=== PATIENT | male | born 1945 | race Caucasian/White ===

== ENCOUNTER 2024-02-19 21:41 | Observation (INO) | payer MEDICARE, SELFPAY ==
[2024-02-19] VITALS (11 sets, daily range): BP systolic 93–136; BP diastolic 60–79; BMI 25.8
[2024-02-19 14:06] LABS: % Basophils 0.7 % (0-2); % Eosinophils 1.5 % (0-6); % Immature Granulocytes 0.2 % (0-0.5); % Lymphocytes 32.5 % (20.5-51.1); % Monocytes 7.2 % (1.7-9.3); % Neutrophils 57.9 % (42.2-75.2); Absolute Eosinophils 0.1 10^3/uL (0-0.7); Absolute Monocytes 0.4 10^3/uL (0.1-0.6); Absolute Neutrophils 3.5 10^3/uL (1.4-6.5); Hematocrit 41.9 % (39.0-52.0); Hemoglobin 13.9 g/dL (13.0-18.0); Mean Corp Hgb Conc. 33.2 g/dL (33.0-37.0); Mean Corpuscular Hgb 30.7 pg (27.0-31.0); Mean Corpuscular Volume 92.5 fL (80.0-94.0); Mean Platelet Volume 10.2 fL (7.4-10.4); Nucleated Red Blood Cells % 0 % (-); Platelet Count 141 10^3/uL (130-400); Red Blood Cell Count 4.53 10^6/uL (4.70-6.10)
[2024-02-19 14:23] LABS: ALT (SGPT) < 10 U/L (0-50); AST (SGOT) 20 U/L (17-59); Albumin 4.2 g/dl (3.5-5.0); Alkaline Phosphatase 62 U/L (38-126); Blood Urea Nitrogen 33 mg/dl (9-20); Calcium 9.4 mg/dl (8.4-10.2); Carbon Dioxide 28 mmol/L (22-30); Chloride 104 mmol/L (98-107); Glucose 110 mg/dl (70-99); Potassium 4.5 mmol/L (3.5-5.1); Sodium 140 mmol/L (135-145); Total Bilirubin 0.7 mg/dl (0.2-1.3); Total Protein 7.2 g/dl (6.3-8.2); eGFR > 60.00
--- NOTE | 2024-02-19 17:58 | EDRN ---
Trina NGUYỄN currently at the pts bedside
--- NOTE | 2024-02-19 18:01 | ED.GENMED ---
History of Present Illness
General
Chief Complaint: Numbness
Source: patient and family
Exam Limitations: none
Time Seen by Provider: 02/19/24 17:37
History of Present Illness
History of Present Illness:
78yoM with a history of atrial fibrillation, hypertension, hyperlipidemia, pacemaker/defibrillator placement, and prior mini stroke presenting with his son for evaluation of right arm weakness. Patient was sitting in his chair yesterday in the
living room around 10 PM. He started to feel a weird sensation in his right arm and states it felt like he could not control the movement in his right arm. He tried to use the remote but was unable to figure out how to push the buttons correctly.
He denies having symptoms in the lower extremities at this time. He stood up from the chair and fell to the ground. He denies any head strike or loss of consciousness. He then had a second fall a few minutes later in the kitchen. Patient denies
any symptoms today and states his right arm symptoms have completely resolved. He denies any headache, visual changes, dizziness, chest pain, palpitations, shortness of breath.
Phy Exam
General Physical Exam
General Presentation: well appearing and no apparent distress
General age: appears stated age
General Skin: warm and dry
General Habitus: normal
General Mental: alert
ENT Exam
ENT Exam: normocephalic
Cardiovascular Exam
Cardiovascular Exam: regular rate/rhythm and normal peripheral pulses (2+ radial pulses bilaterally)
Pulmonary Exam
Pulmonary Exam: lungs clear, no respiratory distress, no rales, no crackles and no rhonchi
Neurological Exam
Neurological Exam: alert, CN II-XII intact, no motor deficits, no sensory deficits, speech normal and other (CN 2-12 grossly intact. PERRL. EOMs intact. Negative drift x4. 5/5 strength and gross sensation intact in all extremities. Normal finger to
nose and heel to sprague bilaterally. )
NIH Stroke Score
Level of Consciousness: 0 - Alert
LOC questions: 0-Answers both correctly
LOC Commands: 0-Performs both correctly
Best Gaze: 0-Normal
Visual [place]: 0=Normal, no visual loss
Facial palsy: 0=Normal, symmetrical
Motor - Right Arm: 0=No drift 10 seconds
Motor - Left Arm: 0=No drift 10 seconds
Motor - Right Le-No drift 5 seconds
Motor - Left Le-No drift 5 seconds
Limb Ataxia: 0-Absent
Sensation: 0-Normal
Best Language: 0-No aphasia
Dysarthria: 0-Normal
Extinction and Inattention: 0-No abnormality
Total Score:: 0
[place] Coma Scale
Eye Opening: Spontaneous
Verbal Response: Oriented
Motor Response: Obeys Commands
GCS Total Score: 15
Skin Exam
Skin Exam: normal color and warm/dry
Psychiatric Exam
Psychiatric Exam: normal mood/affect
Course
Orders/Labs/Results
Orders:
Orders
02/19/24 13:45
EKG [Electrocardiogram (*1)] Urgent
Reason for Study: Vertigo / Dizzy
EKG- Treatment ONCE
02/19/24 14:00
Complete Blood Count/With Diff Urgent
Comprehensive Metabolic Panel Urgent
02/19/24 17:39
Interrogate Pacemaker- Treatment ONCE
02/19/24 18:00
CT Head W/o Iv Contrast Urgent
Comment:
Reason For Exam: transient R arm numbness
02/19/24 18:19
Troponin I Urgent
02/19/24 21:27
Admit/Transfer Patient As Directed
Co-Sign Provider:
Level of Care: Observation services
Assign to:: Telemetry
Physician / Group: Riley Sifuentes
Diagnosis: CVA/TIA symptoms
Reason for Telemetry: CVA/TIA
Date to Stop Telemetry: 02/22/24
Time to Stop Telemetry: 11:00
02/19/24 21:28
Code Status As Directed
Resuscitation Status: Do not resuscitate
Reached after discussion with pt or family/Healthcare POA: Yes
Decision communicated with: patient and son
DNR Bracelet Application ONCE
02/19/24 22:00
Flush (0.9% Sodium Chloride) [Flush (Nss)] See Dose Instructions IV PER PROTOCOL
02/19/24 22:23
Acetaminophen [Tylenol] 650 mg PO Q4HPRN PRN
02/19/24 22:23
Urinalysis Routine
MR Brain Without Contrast Routine
Comment:
Reason For Exam: stroke/TIA
Recent pill cam endoscopy?: No
Activity As Directed
Activity Level: Out of Bed-Early Mobility
NIH Stroke Scale As Directed
Directions: Per protocol
Comment: every shift and with any change in condition or mental status
Neurological Checks As Directed
Frequency: q4h
Additional Instructions:: q4h x 24h upon admission to the floor, then qshift & with any change in condition
and mental status
Patient Education As Directed
Type: Stroke education packet
Comment: provide to patient and family
Pneumatic Compression Sleeves As Directed
Type: Knee high
Vital Signs As Directed
Frequency: Per unit guidelines
Ot Eval And Treat Routine
Pt Eval And Treat Routine
Activity Level: Out of Bed-Early Mobility
Speech Therapy Eval & Treat Routine
DX Deep Vein Thrombosis Video Routine
02/20/24 06:00
Type+Screen IN AM
Basic Metabolic Panel IN AM
Cardiovascular Evaluation IN AM
Complete Blood Count/With Diff IN AM
Erythrocyte Sed Rate IN AM
Glycohemoglobin (HgbA1c) IN AM
PTT IN AM
Prothrombin Time IN AM
02/22/24 11:00
DC Protocol for Telemetry ONCE
Abnormal Lab Results
02/19/24
14:00
RBC 4.53 L 10^6/uL
(4.70-6.10)
BUN 33 H mg/dl
(9-20)
Glucose 110 H mg/dl
(70-99)
02/19/24 14:00
02/19/24 14:00
Vital Signs
Initial and Last Documented VS:
Initial Vital Signs
Temp Pulse Resp BP Pulse Ox
98.1 F 62 18 133/68 98
02/19/24 13:46 02/19/24 13:46 02/19/24 13:46 02/19/24 13:46 02/19/24 13:46
Last Documented Vital Signs
Temp Pulse Resp BP Pulse Ox
97.5 F 73 19 129/72 96
02/19/24 17:37 02/19/24 22:15 02/19/24 22:15 02/19/24 22:00 02/19/24 20:00
MDM/Problems Addressed
Differential Diagnosis Includes:
78yoM here after an episode of R arm weakness yesterday. States he didn't have any control of the RUE. Had 2 falls yesterday. Symptoms now resolved. Hx of prior TIAs. He is afebrile and hemodynamically stable. He is well appearing in no distress. No
pronator drift noted on exam. NIHSS 0. Differential diagnosis includes but is not limited to: TIA, CVA, ACS
Initial ED plan: Basic lab work and EKG obtained in triage. Labs overall unremarkable. EKG shows ventricular paced rhythm. Will interrogate pacemaker, check troponin, and obtain CT head.
*EKG
Interpreted by ED Provider?: Yes
EKG Intrepretation Date: 02/19/24
Heart Rate: 67
Rate: normal
Rhythm: ventricular paced
Ischemia: no ischemia
*Critical Care Note
Total Time (30-74mins, 75-104mins- exclusive of procedures): Not Applicable
Update Note
Update Note:
Troponin within normal limits. CT head is negative for acute infarct. Old infarct seen on imaging. There is also an arachnoid cyst noted. Patient is high risk given age and comorbidities. Will admit for neurology evaluation.
ED Attending Note
-
Portions of this chart may have been created with voice recognition software.� Occasional wrong word or��sound alike� substitutions may have occurred due to the inherent limitations of voice recognition software.
Discharge Plan
Departure
Patient Disposition: Admit
Date of Disposition: 02/19/24
Time of Disposition: 20:35
Presentation/result/management discussed w/ accepting MD/DO: Hospitalist
Discharge Problem:
Weakness of right arm
Interventions
Interventions:
*Risk Screen - Suicide Last Done: 02/19/24 13:46
*General Assessment Last Done: 02/19/24 13:46
*Neglect/Abuse Screening Last Done: 02/19/24 13:46
ED- Fall Risk Assessment Last Done: 02/19/24 17:37
*ED COVID-19 Vaccine History Last Done: 02/19/24 13:46
*Nursing Disposition Last Done: 02/19/24 22:20
ED- Neurological Assessment Last Done: 02/19/24 17:37
--- NOTE | 2024-02-19 18:26 | EDRN ---
the pt ia AV paced, pacemaker interrogated per Trina Martir NGUYỄN's orders, PIV placed and troponin drawn and sent
[2024-02-19 18:48] LABS: Troponin I 0.012 ng/ml
--- NOTE | 2024-02-19 20:40 | HPS.HSE ---
Family Physician
-
Family Physician: Jeffry Teague Jr.
Chief Complaint
-
confusion
History of Present Illness
Patient is a 78-year-old male with past medical history significant for atrial fibrillation, hypertension, hyperlipidemia, TIA and BPH who presented to [facility] ED for evaluation for inability to use right arm for short period of time. Patient
states yesterday evening he had a period of time where he was unable to work TV remote like normal, he recalls looking at it and unable to know how to turn TV off and unable to get right hand to do anything. Following episode he stood up and fell,
denies feeling any weakness, just stated, 'I must have lost my balance.' He was able to get himself up post fall and walked to kitchen where he had a second fall after opening refrigerator door. Believes he lost balance again when he let go of door
handle. Again he was able to get himself up and went to bed. Decided to come for evaluation after explaining to son the events from night previous. Denies any numbness, vision changes, fever, chills, chest pain, palpitations, nausea, vomiting,
constipation, diarrhea or urinary symptoms.
Medical History
Past Medical History
Past Medical History: Reports Other
Additional Past Medical History:
atrial fibrillation
hypertension
hyperlipidemia
TIA
BPH
Past Surgical History: Reports Other
Additional Past Surgical History:
mitral valve repair (2004)
ICD
cataract surgery
tooth extraction
Social History
Tobacco: Former Smoker (quit in 1984)
Alcohol: Occasional (a few drinks a month)
Drug: None
Living: Alone
Employment: Retired
Family History
Family History: Not pertinent
Allergies / Home Medications
Allergies reflects when Allergies were last updated in [employer].
Home Medications with original date entered in [employer]
Allergy/Medication List:
Allergies
Allergy/AdvReac Type Severity Reaction Status Date / Time
No Known Allergies Allergy Unverified 02/19/24 13:53
Home Medications
ascorbic acid (vitamin C) 1,000 mg tablet,extended release (Vitamin C ER) 1,000 mg PO DAILY 02/19/24
aspirin 81 mg tablet,delayed release 162 mg PO QPM 02/19/24
cyanocobalamin (vitamin B-12) 1,000 mcg tablet (Vitamin B-12) 1,000 mcg PO BID 02/19/24
donepezil 10 mg tablet 10 mg PO HS 02/19/24
folic acid 1 mg tablet 1 mg PO DAILY 02/19/24
methotrexate sodium 2.5 mg tablet 2.5 mg PO QWEEK 02/19/24
sacubitril 24 mg-valsartan 26 mg tablet (Entresto) 1 tab PO BID 02/19/24
simvastatin 40 mg tablet 40 mg PO QPM 02/19/24
sotalol 120 mg tablet 120 mg PO BID 02/19/24
spironolactone 25 mg tablet 12.5 mg PO DAILY 02/19/24
tamsulosin 0.4 mg capsule 0.4 mg PO DAILY 02/19/24
Review of Systems
-
History Source: Patient
Constitutional: Reports No Symptoms
EENT: Reports No Symptoms
Respiratory: Reports No Symptoms
Cardiac: Reports No Symptoms
Abdomen/GI: Reports No Symptoms
: Reports No Symptoms
Musculoskeletal: Reports No Symptoms
Skin: Reports No Symptoms
Neurological: Reports Weakness and Other (inability to control right arm and hand)
Endocrine: Reports No Symptoms
Hematologic/Lymphatic: Reports No Symptoms
Psych: Reports No Symptoms
Physical Exam
Vital Signs
Vital Signs
Temp Pulse Resp BP Pulse Ox
97.5 F 61 15 117/74 98
02/19/24 17:37 02/19/24 19:45 02/19/24 19:45 02/19/24 19:28 02/19/24 19:46
Physical Exam
General: Well Developed, Well Nourished, No Apparent Distress, Comfortable and Conversant
HEENT: NormoCephalic, Moist mucous membranes, Atraumatic, PERRLA, [place] Conjunctivae, Nose Appears Normal and Ears Appear Normal
Respiratory: Clear and Non Labored Respirations
Cardiac: S1/S2 and Regular Rhythm; No Murmur, Rub or Gallop
Breast: Deferred by me
GI: Soft, Non Tender, Non Distended and Normal Bowel Sounds; No Organomegaly
Rectal: Deferred by Provider
Genito-urinary: Deferred by me
Musculoskeletal: No Clubbing, No Cyanosis and No Edema
Skin: Warm and IV/Catheter Site; No Rash
Neuro: Awake, Alert, AO x 3, No Motor Deficits, Nonfocal/grossly intact, Cranial Nerves Intact and No Sensory Deficits
Hematologic/Lymphatic: No Lymphadenopathy
Psych: Calm and Intact Judgment/Insight
Laboratory Results
-
02/19/24 14:00
02/19/24 14:00
Laboratory Results
Total Bilirubin 0.7 mg/dl (0.2-1.3) 02/19/24 14:00
AST 20 U/L (17-59) 02/19/24 14:00
ALT < 10 U/L (0-50) 02/19/24 14:00
Alkaline Phosphatase 62 U/L (38-126) 02/19/24 14:00
Troponin I 0.012 ng/ml 02/19/24 18:19
Data Reviewed
-
CT Scan: Report Reviewed by me (Head: No CT evidence for acute intracranial hemorrhage or transcortical infarct)
Medical Tests (Nuc Med, Echo, EKG etc): Report Reviewed by me (EKG: Ventricular-paced rhythm WITH OCCASIONAL PREMATURE VENTRICULAR COMPLEXES)
Lab Data: Labs Reviewed by me
Impression/Plan
-
IMPRESSION/PLAN:
#CVA/TIA symptoms
Head CT: 1. No CT evidence for acute intracranial hemorrhage or transcortical infarct.
2. Small chronic transcortical infarct in the inferior right occipital lobe.
3. 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
4. Mild white matter leukoaraiosis in the frontal and parietal lobes.
5. 7.3 cm arachnoid cyst in the posterior fossa causing mild mass effect on the posterior aspect of the superior right cerebellar hemisphere.
Arachnoid cyst has been known for at least 1 year
- Admit to telemetry for observation
- consult Neurology
- MRI
- Neurochecks
- NIH
#atrial fibrillation
ICD
EKG: Ventricular-paced rhythm WITH OCCASIONAL PREMATURE VENTRICULAR COMPLEXES
ABNORMAL ECG
- continue Entresto, sotalol, and aspirin
#hypertension
- continue spironolactone and donepezil
#hyperlipidemia
- continue simvastatin
#BPH
- continue tamsulosin
Code Status: DNR
DVT Prophylaxis: SCDs
--- NOTE | 2024-02-19 21:24 | W.PN.UPDATE ---
Update Note
Progress Note Update
This is an addendum to the H&P written by Radha Gunderson on 02/19/2024. Patient seen and examined independently with STARCH DUMPER.
78-year-old male past medical history of paroxysmal atrial fibrillation with ICD, hypertension, hyperlipidemia, prior TIA presenting with right arm weakness since yesterday 10 PM. He stood up and fell. Right arm symptoms completely resolved today.
Arachnoid cyst in the posterior fossa is known as of a year ago.
CT head shows no acute intracranial abnormality. There is small chronic transcortical infarct in the inferior right occipital lobe, 7.3 cm arachnoid cyst in the posterior fossa causing mild mass effect in the posterior aspect of the superior right
cerebellar hemisphere.
Labs unremarkable.
Presentation concerning for TIA. No symptoms currently. ICD to be interrogated. Telemetry monitoring. Check MRI brain. Neurology consulted. Patient with [id number] score of at least 3 and should likely be on anticoagulation for atrial
fibrillation instead of aspirin.
[2024-02-19] MEDS: ARICEPT 10 MG PO (23:50)
[2024-02-19] MEDS: BETAPACE 120 MG PO (23:50)
[2024-02-19] MEDS: ENTRESTO 24 MG/26 MG 1 TAB PO (23:53)
[2024-02-19] MEDS: LIPITOR 20 MG PO (23:54)
[2024-02-19] MEDS: VITAMIN B-12 1000 MCG PO (23:54)
[2024-02-20] VITALS (14 sets, daily range): BP systolic 94–125; BP diastolic 60–101; PULSE 64; BMI 25.8
[2024-02-20] MEDS: ASPIR LOW (ENTERIC COATED) 162 MG PO (00:02)
[2024-02-20 06:58] LABS: PT 13.7 Sec (11.4-14.6)
[2024-02-20 06:59] LABS: APTT 30.6 Sec (23.4-35.0)
[2024-02-20 07:10] LABS: Blood Urea Nitrogen 26 mg/dl (9-20); Calcium 8.2 mg/dl (8.4-10.2); Carbon Dioxide 23 mmol/L (22-30); Chloride 108 mmol/L (98-107); Estimated Creatinine Clearance 53 ml/min; Glucose 91 mg/dl (70-99); HDL Cholesterol 41 mg/dl; Potassium 3.9 mmol/L (3.5-5.1); Sodium 138 mmol/L (135-145); Total Cholesterol 148 mg/dl (50-199); eGFR > 60.00
[2024-02-20 07:31] LABS: % Basophils 0.7 % (0-2); % Eosinophils 2.3 % (0-6); % Immature Granulocytes 0.2 % (0-0.5); % Lymphocytes 40.5 % (20.5-51.1); % Monocytes 6.8 % (1.7-9.3); % Neutrophils 49.5 % (42.2-75.2); Absolute Eosinophils 0.1 10^3/uL (0-0.7); Absolute Lymphocytes 2.3 10^3/uL (1.2-3.4); Absolute Monocytes 0.4 10^3/uL (0.1-0.6); Absolute Neutrophils 2.8 10^3/uL (1.4-6.5); Hematocrit 34.1 % (39.0-52.0); Hemoglobin 11.5 g/dL (13.0-18.0); Mean Corp Hgb Conc. 33.7 g/dL (33.0-37.0); Mean Corpuscular Hgb 30.6 pg (27.0-31.0); Mean Corpuscular Volume 90.7 fL (80.0-94.0); Mean Platelet Volume 11.6 fL (7.4-10.4); Nucleated Red Blood Cells % 0 % (-); Platelet Count 112 10^3/uL (130-400); Red Blood Cell Count 3.76 10^6/uL (4.70-6.10); Red Cell Dist. Width 12.8 % (11.5-14.5); White Blood Cell Count 5.6 10^3/uL (4.8-10.8)
[2024-02-20 08:02] LABS: LDL Cholesterol, Calculated 82 mg/dl; Triglyceride 128 mg/dl (10-149); Very Low Density Lipoprotein 25 mg/dl (0-30)
[2024-02-20 08:12] LABS: Erythrocyte Sed Rate 18 mm/hour (0-20)
[2024-02-20] MEDS: ALDACTONE PO (08:58)
[2024-02-20] MEDS: ENTRESTO 24 MG/26 MG PO (08:58)
[2024-02-20] MEDS: BETAPACE 120 MG PO ×2 (09:30→20:53)
[2024-02-20] MEDS: FLOMAX 0.4 MG PO (09:31)
[2024-02-20] MEDS: FOLVITE 1 MG PO (09:31)
[2024-02-20] MEDS: VITAMIN C 1000 MG PO (09:31)
[2024-02-20] MEDS: VITAMIN B-12 1000 MCG PO ×2 (09:31→20:53)
[2024-02-20 09:37] LABS: Glycohemoglobin (HgbA1c) 5.6 % (4.0-5.6)
--- NOTE | 2024-02-20 09:43 | CON.NEURO ---
Addendum entered and electronically signed by Manuel Cardona MD 02/20/24 13:03:
has old pacemaker lead, can't get MRI
will obtain carotid u/s
Original Note:
Neuro Assessment/Plan
Assessment
clinically this is a fully resolved TIA. NIHSS 0
will obtain brain MRI, MRA carotids
given afib history would consider anti-coagulation
continue aspirin and simvastatin 40 for now, for stroke there is no difference in efficacy between ASA 81 and 162 mg
arachnoid cyst, nothing to do
Plan
will obtain brain MRI, MRA carotids
continue aspirin and simvastatin 40 for now
Consultation
Order
Date of Consultation: 02/20/24
Requesting Provider: Natalie Gates
Reason for Consult: TIA
Subjective/Objective
Subjective Data
Date of Service: February 20, 2024
He is an 78 year old right handed man with h/o afib, HTN, HLD, prior stroke to the left frontal and right occipital, arachnoid cyst, presenting with ~6 hr episode of right arm weakness and apraxia. he was sitting in chair developed right arm
weakness. was holding TV remote in each hand but couldn't figure out how to operate them. He fell when getting up from his chair, and again in the kitchen. symptoms are resolved and he is back to baseline. He denies speech changes, vision loss,
double vision, tingling, or numbness. Denies having right hand weakness with prior strokes
Objective Data
Vital Signs
Temp Pulse Resp BP Pulse Ox
36.4 C 64 22 106/74 92
02/19/24 17:37 02/20/24 09:30 02/20/24 08:01 02/20/24 09:30 02/20/24 08:01
Lab Results
02/20/24 05:09
02/20/24 05:09
PT 13.7 Sec (11.4-14.6) 02/20/24 05:09
INR 1.00 02/20/24 05:09
APTT 30.6 Sec (23.4-35.0) 02/20/24 05:09
Sodium 138 mmol/L (135-145) 02/20/24 05:09
Potassium 3.9 mmol/L (3.5-5.1) 02/20/24 05:09
BUN 26 mg/dl (9-20) H 02/20/24 05:09
Glucose 91 mg/dl (70-99) 02/20/24 05:09
Calcium 8.2 mg/dl (8.4-10.2) L 02/20/24 05:09
LDL Cholesterol, Calc 82 mg/dl 02/20/24 05:09
Patient Allergies
No Known Allergies Allergy (Unverified 02/19/24 13:53)
Physical Exam
-
AAOx3 speech clear, language intact
VFF, EOMI, face symmetric
full strength b/l UE/LE
sensation intact touch/pin/temp, mild vib loss b/l LE
Medications
-
Active Medications
Generic Name Dose Route Start Last Admin
Trade Name Freq PRN Reason Stop Dose Admin
Acetaminophen 650 mg 02/19/24 22:23
Acetaminophen 325 Mg Tablet PO 03/18/24 22:22
Q4HPRN PRN
LOERA, mild pain, or temp >100.4F
Ascorbic Acid 1,000 mg 02/20/24 08:00 02/20/24 09:31
Ascorbic Acid 500 Mg Tablet PO 03/19/24 07:59 1,000 mg
DAILY MAHAMED Administration
Aspirin 162 mg 02/20/24 18:00 02/20/24 00:02
Aspirin 81 Mg (Enteric Coated) Tablet PO 03/19/24 17:59 162 mg
QPM MAHAMED Administration
Atorvastatin Calcium 20 mg 02/19/24 22:23 02/19/24 23:54
Atorvastatin (Lipitor) 20 Mg Tablet PO 03/18/24 22:22 20 mg
QPM MAHAMED Administration
Cyanocobalamin 1,000 mcg 02/19/24 22:23 02/20/24 09:31
Cyanocobalamin 1,000 Mcg Tablet PO 03/18/24 22:22 1,000 mcg
BID MAHAMED Administration
Donepezil HCl 10 mg 02/19/24 22:23 02/19/24 23:50
Donepezil Hcl 10 Mg Tablet PO 03/18/24 22:22 10 mg
HS MAHAMED Administration
Folic Acid 1 mg 02/20/24 08:00 02/20/24 09:31
Folic Acid 1 Mg Tablet PO 03/19/24 07:59 1 mg
DAILY MAHAMED Administration
Sacubitril/Valsartan 1 tab 02/19/24 22:23 02/20/24 08:58
Sacubitril 24 Mg/Valsartan 26 Mg (Entresto) Tab PO 03/18/24 22:22 Not Given
BID MAHAMED
Sodium Chloride 0 flush 02/19/24 22:00
Sodium Chloride 0.9% (Flush) Syringe IV 03/18/24 21:59
PER PROTOCOL MAHAMED
Sotalol HCl 120 mg 02/19/24 22:23 02/20/24 09:30
Sotalol 120 Mg Tablet PO 03/18/24 22:22 120 mg
BID MAHAMED Administration
Spironolactone 12.5 mg 02/20/24 08:00 02/20/24 08:58
Spironolactone 25 Mg Tablet PO 03/19/24 07:59 Not Given
DAILY MAHAMED
Tamsulosin HCl 0.4 mg 02/20/24 08:00 02/20/24 09:31
Tamsulosin 0.4 Mg Capsule PO 03/19/24 07:59 0.4 mg
DAILY MAHAMED Administration
Home Medications
�Medication �Instructions �Recorded
ascorbic acid (vitamin C) 1,000 mg 1,000 mg PO DAILY 02/19/24
tablet,extended release (Vitamin C
ER)
aspirin 81 mg tablet,delayed 162 mg PO QPM 02/19/24
release
cyanocobalamin (vitamin B-12) 1,000 mcg PO BID 02/19/24
1,000 mcg tablet (Vitamin B-12)
donepezil 10 mg tablet 10 mg PO HS 02/19/24
methotrexate sodium 2.5 mg tablet 15 mg PO SA 02/19/24
sacubitril 24 mg-valsartan 26 mg 1 tab PO BID 02/19/24
tablet (Entresto)
simvastatin 40 mg tablet 40 mg PO QPM 02/19/24
sotalol 120 mg tablet 120 mg PO BID 02/19/24
spironolactone 25 mg tablet 12.5 mg PO DAILY 02/19/24
tamsulosin 0.4 mg capsule 0.4 mg PO DAILY 02/19/24
cetirizine 10 mg tablet (All Day 10 mg PO DAILY 02/20/24
Allergy (cetirizine))
folic acid-vit B6-vit B12 2.2 1 tab PO DAILY 02/20/24
mg-25 mg-1 mg tablet
--- NOTE | 2024-02-20 12:58 | W.PN.HOSP.TC ---
Today's Communication/Plan
-
carotid US
PT/OT
VSE
Cont asa
obtain records
Assessment / Plan
Assessment / Plan
General: Well Developed, Well Nourished, No Apparent Distress, Comfortable and Conversant
HEENT: NormoCephalic, Moist mucous membranes, Atraumatic, [place] Conjunctivae, Nose Appears Normal and Ears Appear Normal
Respiratory: Clear and Non Labored Respirations
Cardiac: S1/S2 and Regular Rhythm; No Murmur, Rub or Gallop
GI: Soft, Non Tender, Non Distended and Normal Bowel Sounds; No Organomegaly
Musculoskeletal: No Clubbing, No Cyanosis and No Edema
Skin: Warm and IV/Catheter Site; No Rash
Neuro: Awake, Alert, AO x 3, No Motor Deficits, Nonfocal/grossly intact, Cranial Nerves Intact and No Sensory Deficits
Hematologic/Lymphatic: No Lymphadenopathy
Psych: Calm and Intact Judgment/Insight
#RUE weakness/tingling likely 2/2 tia r/o CVA.
- consult Neurology
- Unable to do MRI brain and MRA head/neck as per MRI dept as pt has a fragmented abandoned lead and unable to perform MRI
- Neurochecks. Carotid US.
- NIHSS and neurochecks. PT/OT
- Cont statin/asa.
#Dysphagia suspected
-Speech evaluated and recommended VSE.
#atrial fibrillation unclear chronicity
-monitor on tele.
-cont sotalol and asa
-Not on anticoagluation
#Suspected CHF
-Cont entresto. aldactone. BP soft. not on diuretics
#hypertension
- continue spironolactone
#hyperlipidemia
- continue simvastatin
#BPH
- continue tamsulosin
#Cognitive impairment/suspected dementia as pt noted to be on Donepezil
#Chronic Thrombocytopenia-trend for now. Plt at 112.
Code Status: DNR
DVT Prophylaxis: SCDs
no prior hospitalization here
Discussed with patient's son over the phone in detail. Per patient son, he follows up with [employer] economic research assistant. Son was not sure why patient is not on anticoagulation. Son was only able to tell that patient ICD fired last summer and medications
were adjusted. He was unable to give further information. Obtain records from economic research assistant office.
Anticipated Discharge: Within 24 hours
Subjective/Interval History
-
Date of Service: February 20, 2024
states his RUE symptoms have resolved
walking to bathroom without any difficulty
Objective Data
-
Labs:
Laboratory Results
02/20/24
05:09
WBC 5.6
Hgb 11.5 L
Hct 34.1 L
Plt Count 112 L D
PT 13.7
INR 1.00
APTT 30.6
Sodium 138
Potassium 3.9
Chloride 108 H
Carbon Dioxide 23
BUN 26 H
Creatinine 1.0
Glucose 91
Calcium 8.2 L
Vital Signs:
Vital Signs
Temp Pulse Resp BP Pulse Ox
97.5 F 62 19 106/74 98
02/19/24 17:37 02/20/24 10:45 02/20/24 10:45 02/20/24 09:30 02/20/24 10:45
I&O
02/19/24 02/20/24 02/21/24
06:59 06:59 06:59
Intake Total 480 / 480
Balance 480 / 480
Data Reviewed
-
Total Time Spent with Patient (in minutes): 55
[2024-02-20] MEDS: ALDACTONE 12.5 MG PO (13:00)
[2024-02-20 13:45] LABS: Urine Albumin Trace (Neg - Trace); Urine Bilirubin Negative (Negative); Urine Character Clear (Clear); Urine Color Yellow; Urine Glucose Negative (Negative); Urine Ketone Negative (Negative); Urine Leukocyte Negative (Negative); Urine Nitrite Negative (Negative); Urine Occult Blood Negative (Negative); Urine Specific Gravity 1.015 (<1.030); Urine Urobilinogen Negative (Neg - 1+)
--- NOTE | 2024-02-20 14:08 | PTOTSP ---
ST Acute Care Evaluations
Pt currently presents with clear speech but perhaps some slight to mild oral motor programming deficits that could be assessed further at a later time. Pt's speech fluency is clear and vocal quality is clear. Pt's receptive and expressive language
is fairly unremarkable - pt solely has some fleeting difficulty finding the right words, which pt attributes to being quite particular about what he wants to say in particular. Further assessment could be considered, if pt desires. Given pt's high
level of independence at baseline, additional cognitive linguistic assessment could also be considered to ensure pt is able to sufficiently perform all higher-level thinking tasks required for daily living requirements.
Pt is also presenting with clinical signs of suspected mild pharyngoesophageal dysphagia characterized by fairly consistent delayed throat clearing s/p ingestion of thin liquids.
Recommendations:
- Continue with regular solids, thin liquids, meds as tolerated.
- Aspiration precautions & reflux precautions: HOB upright for all PO intake; HOB upright for 60 minutes after PO intake; small bites/sips; alternate bites/sips; chew food thoroughly.
- Video fluoroscopic swallow (VFSS) study for more information.
- QUALITY COORDINATOR to provide additional recommendations pending completion of VFSS.
- QUALITY COORDINATOR to further assess cognitive linguistic skills during next tx session.
[2024-02-20] MEDS: LIPITOR 20 MG PO (18:19)
--- NOTE | 2024-02-20 20:00 | PTCARENOTE ---
Patient admitted in to room 437-2. AAOX3. NIH 0. VSS. Oriented to unit and call magallon system, pt instructed to ring for OOB assist. Patient agreeable
[2024-02-20] MEDS: ENTRESTO 24 MG/26 MG 1 TAB PO (20:53)
[2024-02-20] MEDS: ARICEPT 10 MG PO (21:01)
[2024-02-21 03:08] VITALS: BP 105/51
[2024-02-21 06:00] VITALS: BMI 25.7
[2024-02-21 07:51] VITALS: BP 113/74
--- NOTE | 2024-02-21 08:47 | W.PN.HOSP.TC ---
Addendum entered and electronically signed by Hector Rodriguez MD 02/21/24 15:35:
Discussed with neurologist who discussed with the patient. Per neurology discussion with patient no active significant bleeding was noted while on Eliquis and never required transfusion and patient has decided to go back on Eliquis for his history
of atrial fibrillation to prevent risk of stroke.
Per neurology patient can be discharged home.
More than 30 minutes spent in discharge including
Final examination of the patient
Summarizing hospital stay
Instructions for continuing care to all relevant caregivers
Preparation of discharge records, prescriptions, and referral forms
Total time spent (in minutes): 55
Original Note:
Today's Communication/Plan
-
Await neurology recs
Blood pressure controlled.
Records requested from PCP office for future references
Assessment / Plan
Assessment / Plan
General: Well Developed, Well Nourished, No Apparent Distress, Comfortable and Conversant
HEENT: NormoCephalic, Moist mucous membranes, Atraumatic, [place] Conjunctivae, Nose Appears Normal and Ears Appear Normal
Respiratory: Clear and Non Labored Respirations
Cardiac: S1/S2 and Regular Rhythm; No Murmur, Rub or Gallop
GI: Soft, Non Tender, Non Distended and Normal Bowel Sounds; No Organomegaly
Musculoskeletal: No Clubbing, No Cyanosis and No Edema
Skin: Warm and IV/Catheter Site; No Rash
Neuro: Awake, Alert, AO x 3, No Motor Deficits, Nonfocal/grossly intact, Cranial Nerves Intact and No Sensory Deficits
Hematologic/Lymphatic: No Lymphadenopathy
Psych: Calm and Intact Judgment/Insight
#RUE weakness/tingling likely 2/2 tia
- consult Neurology
- Unable to do MRI brain and MRA head/neck as per MRI dept as pt has a fragmented abandoned lead and unable to perform MRI
- Neurochecks. Carotid US noted without significant stenosis.
- NIHSS and neurochecks. PT/OT
- Cont statin/asa. ? Add Plavix for 21 days. Will await further neurology input.
- Not on anticoagulation due to history of gastrointestinal bleeding
# History of atrial fibrillation unknown chronicity/NSVT history
Continue with sotalol.
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
#Dysphagia suspected
-Speech evaluated and recommended VSE. Continue regular solids and liquids as tolerated. Aspiration reflux precaution.
-s/p VSE Aspiration occurred due to poor duration/distention of pharyngoesophageal segment opening. Recommend OUTPATIENT GI consult and/or manometry to further assess.
#Suspected CHF
-Cont entresto. aldactone. BP soft. not on diuretics
#hypertension
- continue spironolactone
#hyperlipidemia
- continue simvastatin
#BPH
- continue tamsulosin
#Cognitive impairment/suspected dementia as pt noted to be on Donepezil
#Chronic Thrombocytopenia-trend for now. Plt at 115.
# History of rheumatoid arthritis on methotrexate
Code Status: DNR
DVT Prophylaxis: SCDs
no prior hospitalization here
PT/OT-home health.
Anticipated Discharge: Today
Subjective/Interval History
-
Date of Service: February 21, 2024
denies any numbing or tingling
States he is feeling back to baseline
Objective Data
-
Labs:
Laboratory Results
02/21/24
08:18
WBC Pending
Hgb Pending
Hct Pending
Plt Count Pending
Sodium Pending
Potassium Pending
Chloride Pending
Carbon Dioxide Pending
BUN Pending
Creatinine Pending
Glucose Pending
Calcium Pending
Vital Signs:
Vital Signs
Temp Pulse Resp BP Pulse Ox
97.5 F 61 18 113/74 95
02/21/24 07:51 02/21/24 07:51 02/21/24 07:51 02/21/24 07:51 02/21/24 07:51
I&O
02/20/24 02/21/24 02/22/24
06:59 06:59 06:59
Intake Total 1200 / 1200
Output Total 600 / 600
Balance 600 / 600
[2024-02-21 08:55] LABS: % Basophils 0.5 % (0-2); % Immature Granulocytes 0.4 % (0-0.5); % Lymphocytes 29.8 % (20.5-51.1); % Monocytes 8.3 % (1.7-9.3); Absolute Eosinophils 0.1 10^3/uL (0-0.7); Absolute Lymphocytes 1.7 10^3/uL (1.2-3.4); Absolute Monocytes 0.5 10^3/uL (0.1-0.6); Absolute Neutrophils 3.3 10^3/uL (1.4-6.5); Hematocrit 37.9 % (39.0-52.0); Hemoglobin 12.8 g/dL (13.0-18.0); Mean Corp Hgb Conc. 33.8 g/dL (33.0-37.0); Mean Corpuscular Hgb 30.5 pg (27.0-31.0); Mean Corpuscular Volume 90.2 fL (80.0-94.0); Mean Platelet Volume 11.1 fL (7.4-10.4); Nucleated Red Blood Cells % 0 % (-); Platelet Count 115 10^3/uL (130-400); Red Cell Dist. Width 12.7 % (11.5-14.5); White Blood Cell Count 5.5 10^3/uL (4.8-10.8)
[2024-02-21] MEDS: VITAMIN C 1000 MG PO (09:24)
[2024-02-21] MEDS: VITAMIN B-12 1000 MCG PO (09:24)
[2024-02-21] MEDS: FOLVITE 1 MG PO (09:24)
[2024-02-21] MEDS: FLOMAX 0.4 MG PO (09:24)
[2024-02-21] MEDS: ENTRESTO 24 MG/26 MG 1 TAB PO (09:27)
[2024-02-21] MEDS: BETAPACE 120 MG PO (09:28)
[2024-02-21] MEDS: ALDACTONE 12.5 MG PO (09:29)
[2024-02-21 09:55] LABS: Blood Urea Nitrogen 23 mg/dl (9-20); Carbon Dioxide 25 mmol/L (22-30); Chloride 104 mmol/L (98-107); Estimated Creatinine Clearance 48 ml/min; Glucose 101 mg/dl (70-99); Potassium 4.3 mmol/L (3.5-5.1); Sodium 137 mmol/L (135-145); eGFR > 60.00
[2024-02-21 11:26] VITALS: BP 111/95
--- NOTE | 2024-02-21 12:26 | PTOTSP ---
Video Swallow Study
Summary: Patient presents with WFL oral, mild pharyngeal stage of swallowing, and concern for possible changes to esophageal swallow. There was transient aspiration of consecutive sips of thin liquids. Please see patient care note for full
details of penetration/aspiration and swallowing physiology.
Recommend:
1. Regular, Thin Liquids
2. Medications: crushed in puree if medically cleared
3. Strategies: upright to 90 degrees, small single sips/bites, multiple swallows, intermittent cough/reswallow, remain upright for 30 minutes after PO intake
4. Oral care 3x daily
5. GI consult and/or manometry testing to assess pharyngoesophageal sphincter
6. Dysphagia therapy at the acute care level for brief instruction in compensations. Cognitive linguistic testing as appropriate.
[2024-02-21 15:26] VITALS: PULSE 64; O2SAT 95
--- NOTE | 2024-02-21 15:28 | CM ---
Addendum entered by Ofelia Bernardo 02/21/24 15:42:
Cost of Eliquis is $577 per month and Xarelto is $557 per month, physician made aware.
Original Note:
research & analytics manager reviewed patient's chart and met with patient and patient lives alone in an apartment, per patient his son stops by to help him. Patient is independent with adl's and ambulation, no dme, per physical therapy recommendation is for home
health however patient has declined the need for visiting nurses at discharge. plan is to home Eliquis coupon provided.
PCP: Jeffry Teague Jr
Pharmacy; [facility].
[2024-02-21 15:42] VITALS: BP 107/67
--- NOTE | 2024-02-21 16:12 | W.DCSUMMARY ---
Discharge Summary
Discharge Data
Date of Admission: 02/19/24
Date of Discharge: 02/21/24
-
Pending Results: No
Hospital Course
78-year-old male past medical history of cardiomyopathy status post ICD, primary hypertension, hyperlipidemia, BPH, cognitive impairment, chronic thrombocytopenia, history of rheumatoid arthritis, atrial fibrillation, was presenting from home with
right upper extremity weakness. Patient symptom resolved upon admission. Underwent CT of the head No CT evidence for acute intracranial hemorrhage or transcortical infarct. 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
lobe. 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 Mild white matter leukoaraiosis in the frontal and parietal lobes.
7.3 cm arachnoid cyst in the posterior fossa causing mild mass effect on the posterior aspect of the superior right cerebellar hemisphere. Unable to do MRI brain and MRA head/neck as per MRI dept as pt has a fragmented abandoned lead and unable to
perform MRI.Carotid US noted without significant stenosis. Discussed with neurologist who discussed with the patient. Per neurology discussion with patient no active significant bleeding was noted while on Eliquis and never required transfusion
and patient has decided to go back on Eliquis for his history of atrial fibrillation to prevent risk of stroke. Further discussed with patient who stated he is agreed to go back on the Eliquis. Discussed with patient and patient's son over the
phone that to monitor for symptomology of increased risk of bleeding of hematuria, gastrointestinal bleeding and additional risk of bleeding to be monitored and to return to ER if any of the signs were noted. Aspirin will be discontinued. Patient
be started on Eliquis for history of atrial fibrillation and to prevent risk of stroke moving forward. PT and OT recommended home VN which patient refused. Patient be discharged with outpatient neurology and cardiology follow-up.
Discharge Plan
-
Patient Disposition: Home with Home Care
Discharge Diagnosis/Procedures: Right upper extremity weakness likely secondary to TIA
Condition: Fair
Diet: 2 Gram Sodium
Activity: With assistance and As tolerated
Driving Restrictions: As prior to admission
Other Services: VN and ST
Referrals:
Jeffry Teague Jr., [Family Provider] - in less than 1 week
Iliana Celeste MD [Active] - ( VSE Aspiration occurred due to poor duration/distention of pharyngoesophageal segment opening. Recommend OUTPATIENT GI consult and/or manometry to further assess. )
Prescriptions:
New
Eliquis 5 mg tablet
5 mg PO BID Qty: 60 0RF
Continued
sacubitril-valsartan [Entresto] 24-26 mg Tablet
1 tab PO BID
sotalol 120 mg Tablet
120 mg PO BID
donepezil 10 mg Tablet
10 mg PO HS
Vitamin C 1,000 mg Tablet Extended Release
1,000 mg PO DAILY
cyanocobalamin (vitamin B-12) [Vitamin B-12] 1,000 mcg Tablet
1,000 mcg PO BID
spironolactone 25 mg Tablet
12.5 mg PO DAILY
simvastatin 40 mg Tablet
40 mg PO QPM
methotrexate sodium 2.5 mg Tablet
15 mg PO SA
tamsulosin 0.4 mg Capsule
0.4 mg PO DAILY
cetirizine [All Day Allergy (cetirizine)] 10 mg Tablet
10 mg PO DAILY
folic acid-vit B6-vit B12 2.2-25-1 mg Tablet
1 tab PO DAILY
Discontinued
aspirin [Aspir-81] 81 mg Tablet,Delayed Release (Dr/Ec)
162 mg PO QPM
Discharge Orders:
Discharge Patient (As Directed); Ordered 02/21/24
Ordered By: Hector Rodriguez
Discharge Date and Time
Print Language: TANZANIAN
[2024-02-21] MEDS: LIPITOR 20 MG PO (17:00)
[2024-02-21] MEDS: ASPIR LOW (ENTERIC COATED) 162 MG PO (17:00)
== END 2024-02-21 17:59 | disposition home or self-care (01) ==
LOC: 4 WEST ACU 21:41
PROVIDERS: Emergency Medicine; Nurse Practitioner Family; Physician Assistant; ADMITTING PHYSICIAN Hospitalist; ATTENDING PHYSICIAN Hospitalist; CONSULT PHYSICIAN Psychiatry & Neurology Clinical Neurophysiology; EMERGENCY PHYSICIAN Student in an Organized Health Care Education/Training Program; FAMILY PHYSICIAN Family Medicine
DX: R53.1 Weakness (principal); R20.0 Anesthesia of skin; I48.91 Unspecified atrial fibrillation; I10 Essential (primary) hypertension; E78.5 Hyperlipidemia, unspecified; I65.23 Occlusion and stenosis of bilateral carotid arteries; G93.0 Cerebral cysts; R29.6 Repeated falls; N40.0 Benign prostatic hyperplasia without lower urinary tract symptoms; D69.6 Thrombocytopenia, unspecified; R41.89 Other symptoms and signs involving cognitive functions and awareness; M06.9 Rheumatoid arthritis, unspecified; I49.3 Ventricular premature depolarization; R94.31 Abnormal electrocardiogram [ECG] [EKG]; R48.2 Apraxia; W18.39XA Other fall on same level, initial encounter; Y93.89 Activity, other specified; Y92.000 Kitchen of unspecified non-institutional (private) residence as the place of occurrence of the external cause; Z95.810 Presence of automatic (implantable) cardiac defibrillator; Z86.73 Personal history of transient ischemic attack (TIA), and cerebral infarction without residual deficits; Z66 Do not resuscitate; Z87.891 Personal history of nicotine dependence; Z79.82 Long term (current) use of aspirin; Z79.631 Long term (current) use of antimetabolite agent; Z79.01 Long term (current) use of anticoagulants; Z60.2 Problems related to living alone
CPT/HCPCS: 70450; 71046; 74230; 80048; 80053; 80061; 81003; 83036; 84484; 85025; 85610; 85652; 85730; 86850; 86900; 86901; 92523; 92610; 92611; 93005; 93289; 93880; 97116; 97166; 97530; 99285; G0378